=== PATIENT | female | born 1965 | race Caucasian/White ===

== ENCOUNTER 2018-08-19 03:37 | Emergency (ER) | payer BC ==
--- NOTE | 2018-08-19 03:46 | EDPHY ---
H & P Time Seen by Provider: 08/19/18 03:45 HPI/ROS: HPI CHIEF COMPLAINT: Urinary tract infection HISTORY OF PRESENT ILLNESS: 53-year-old female presents to the emergency room dysuria, urinary frequency and urgency for the past 8 hr. She states she is visiting from [place] she arrived on a plane tonight. Prior to getting on the plane she had some urgency urinary frequency and dysuria. No fever. Denies back pain, denies vomiting. Past Medical History: History of UTI. Past Surgical History: No recent surgical history Social History: From [facility]. Visiting [place]. Denies drugs alcohol tobacco. Family History: Noncontributory ROS REVIEW OF SYSTEMS: 10 Systems were reviewed and negative with the exception of the elements mentioned in the history of present illness. Exam Constitutional appears well nontoxic vital signs stable afebrile triage nursing summary reviewed, vital signs reviewed, awake/alert. Eyes normal conjunctivae and sclera, EOMI, PERRLA. HENT normal inspection, atraumatic, moist mucus membranes, no epistaxis, neck supple/ no meningismus, no raccoon eyes. Respiratory clear to auscultation bilaterally, normal breath sounds, no respiratory distress, no wheezing. Cardiovascular rate normal, regular rhythm, no murmur, no edema, distal pulses normal. Gastrointestinal soft, non-tender, no rebound, no guarding, normal bowel sounds, no distension, no pulsatile mass. Genitourinary no CVA tenderness. Musculoskeletal no midline vertebral tenderness, full range of motion, no calf swelling, no tenderness of extremities, no meningismus, good pulses, neurovascularly intact. Skin pink, warm, & dry, no rash, skin atraumatic. Neurologic awake, alert and oriented x 3, AAOx3, moves all 4 extremities equally, motor intact, sensory intact, CN II-XII intact, normal cerebellar, normal vision, normal speech. Psychiatric normal mood/affect. Heme/Lymph/Immune no lymphadenopathy. Differential Diagnosis: Includes but is not limited to in a particular order UTI, cystitis, pyelonephritis Medical Decision Making: Plan for this patient UA. Re-evaluation: Urinalysis reviewed shows UTI. Urine culture will be sent. Keflex prescription Keflex p.o. 1st dose in the emergency room Patient declines peridium Keflex take-home pack. Drink lots of fluids stay well-hydrated Return if worse including worsening abdominal pain, back pain, fever, vomiting she understands. Source: Patient Constitutional: Initial Vital Signs Temperature (C) 36.3 C 08/19/18 03:46 Heart Rate 91 08/19/18 03:46 Respiratory Rate 18 08/19/18 03:46 Blood Pressure 147/79 H 08/19/18 03:46 O2 Sat (%) 97 08/19/18 03:46 O2 Delivery Mode Room Air Allergies/Adverse Reactions: No Known Allergies Allergy (Unverified 08/19/18 03:46) Home Medications: Medication Instructions Recorded Cephalexin [Keflex] 500 mg PO Q6H #28 cap 08/19/18 Hormones 08/19/18 Medical Decision Making - Data Points Laboratory Results: 08/19/18 03:42 Urine Color PALE YELLOW Urine Appearance CLEAR Urine pH 6.0 (5.0-7.5) Ur Specific [place] 1.001 L (1.002-1.030) Urine Protein NEGATIVE (NEGATIVE) Urine Ketones NEGATIVE (NEGATIVE) Urine Blood 3+ H (NEGATIVE) Urine Nitrate NEGATIVE (NEGATIVE) Urine Bilirubin NEGATIVE (NEGATIVE) Urine Urobilinogen NEGATIVE EU EU (0.2-1.0) Ur Leukocyte Esterase 3+ H (NEGATIVE) Urine RBC 1-3 /hpf /hpf (0-3) Urine WBC 15-25 /hpf H /hpf (0-3) Ur Epithelial Cells TRACE /lpf /lpf (NONE-1+) Urine Bacteria 1+ /hpf H /hpf (NONE SEEN) Urine Glucose NEGATIVE (NEGATIVE) Departure - Departure Disposition: Home, Routine, Self-Care Clinical Impression: UTI (urinary tract infection) Qualifiers: Urinary tract infection type: acute cystitis Hematuria presence: with hematuria Qualified Code(s): N30.01 - Acute cystitis with hematuria Condition: Good Instructions: Urinary Tract Infection in Women (ED) Additional Instructions: 1. Drink lots of fluids stay well-hydrated 2. Return if worse. 3. Antibiotics as prescribed Prescriptions: Cephalexin [Keflex] 500 mg PO Q6H #28 cap
[2018-08-19 03:48] VITALS: BP 147/79
[2018-08-19] MEDS ORDERED: CEPHALEXIN 500MG PREPACK#4 BTL TAKEHOME ONE (04:16)
[2018-08-19] MEDS ORDERED: CEPHALEXIN 500 MG CAP PO ONE (04:16)
== END 2018-08-19 04:33 | disposition home or self-care (01) ==
DX: N30.01 Acute cystitis with hematuria (principal)